=== PATIENT | female | born 2000 | race Caucasian/White ===

== ENCOUNTER 2019-05-20 10:12 | Emergency (ER) | payer OTHER ==
[~2019-05-20] VITALS: Ht 160 cm; Wt 56.7 kg
[~2019-05-20 10:12] MED LIST: TYLENOL100 MG/M1 PO
[2019-05-20] MEDS ORDERED: OSEL75CA PO (13:46)
== END 2019-05-20 14:08 | disposition home or self-care (01) ==
LOC: ER 10:12
DX: J11.1 Influenza due to unidentified influenza virus with other respiratory manifestations (principal)

== ENCOUNTER 2021-04-11 14:24 | Emergency (ER) | payer OTHER ==
[~2021-04-11] VITALS: Ht 160 cm; Wt 59.0 kg
[~2021-04-11 14:24] MED LIST changes: +OSEL75CA PO
[2021-04-11] MEDS ORDERED: CLONAZEPAM0.5 M1 (14:46)
[2021-04-11] MEDS ORDERED: PROZAC40 MG (14:47)
[2021-04-11] MEDS ORDERED: PEPCID AC20 MG (14:47)
[2021-04-11] MEDS ORDERED: MICRO-K 1010 MEQ PO (18:11)
[2021-04-11] MEDS ORDERED: LEVSIN/SL0.125 MG SL (18:11)
== END 2021-04-11 18:31 | disposition home or self-care (01) ==
LOC: ER 14:24
DX: K52.89 Other specified noninfective gastroenteritis and colitis (principal); E87.6 Hypokalemia; R11.11 Vomiting without nausea